=== PATIENT | male | born 1945 | race Caucasian/White ===

== ENCOUNTER 2019-11-29 10:58 | Day surgery (SDC) | payer OTHER, MEDICARE ==
[~2019-11-29] VITALS: Ht 180.3 cm; Wt 77.4 kg
--- NOTE | 2019-11-29 11:59 | NUR ---
History, Chart, Medications and Allergies reviewed before start of procedure. Lungs clear T/O to Auscultation. Patient confirms NPO status and agrees with scheduled surgery. Pre-Op teaching done. Pt verbalizes understanding. Patient states colon prep results clear.
--- NOTE | 2019-11-29 12:59 | NUR ---
11/29/19 1259 SHAHRIAR ISLAS History, Chart, Medications and Allergies reviewed before start of procedure.3-LEAD EKG REVIEWED WITH PHYSICIAN PRIOR TO START OF PROCEDURE.O2 VIA N/C INTACT THROUGHOUT SEDATION/PROCEDURE. MONITOR INTACT WITH CONTINUOUS PULSE OXIMETRY AND INTERMITTENT BP.PATIENT DETERMINED TO BE ASA APPROPRIATE FOR PROPOFOL SEDATION PRIOR TO START OF PROCEDURE BY .
== END 2019-11-29 14:04 | disposition home or self-care (01) ==
LOC: ORSCMMR 10:58 → ORD 11:30 → ORSCMMR 12:15 → ORD 12:15 → ORSCMMR 14:04
PROVIDERS: Surgery
PROC: 0DBK8ZX Excision of Ascending Colon, Via Natural or Artificial Opening Endoscopic, Diagnostic (ICD-10-PCS; principal; 2019-11-29 12:15)
PROC: 0DBP8ZX Excision of Rectum, Via Natural or Artificial Opening Endoscopic, Diagnostic (ICD-10-PCS; principal; 2019-11-29 12:15)
DX: D12.2 Benign neoplasm of ascending colon (principal); R93.89 Abnormal findings on diagnostic imaging of other specified body structures; Z79.82 Long term (current) use of aspirin; Z79.899 Other long term (current) drug therapy
CPT/HCPCS: 88305; J2704; J7120

== ENCOUNTER 2019-12-25 13:09 | Day surgery (SDC) | payer OTHER ==
[~2019-12-25] VITALS: Ht 180.3 cm; Wt 72.6 kg
[2019-12-25] MEDS ORDERED: Aspir-Trin325 MG PO (13:50)
--- NOTE | 2019-12-25 15:36 | NUR ---
12/25/19 1536 Tiffanie Carreno ([facility] MEDIPORT PLACEMENT HAS BEEN VERIFIED AND IS GOOD PER DR. BIRMINGHAM.
== END 2019-12-25 16:07 | disposition home or self-care (01) ==
LOC: ORSCSDS 13:09
PROVIDERS: Surgery
PROC: 05H533Z Insertion of Infusion Device into Right Subclavian Vein, Percutaneous Approach (ICD-10-PCS; principal; 2019-12-25 14:15)
PROC: B5161ZA Fluoroscopy of Right Subclavian Vein using Low Osmolar Contrast, Guidance (ICD-10-PCS; principal; 2019-12-25 14:15)
DX: C20 Malignant neoplasm of rectum (principal); Z79.82 Long term (current) use of aspirin
CPT/HCPCS: 77001; C1788; J0690; J1642; J2001; J2250; J2405; J3010; J7120